=== PATIENT | female | born 1945 | race Caucasian/White ===

== ENCOUNTER 2024-01-02 13:44 | Outpatient (CLI) | payer MEDICARE, OTHER, SELFPAY ==
[2024-01-02 15:30] LABS: Basophils Absolute Auto 0.1 K/mm3 (0.0-0.1); Basophils Percent Auto 0.7 % (0.2-1.2); Eosinophils Absolute Auto 0.2 K/mm3 (0-0.3); Eosinophils Percent Auto 1.5 % (0-4.4); Hematocrit 40.2 % (37.0-47.0); Hemoglobin 13.2 g/dL (12.0-15.0); Immature Granulocyte Absolute 0.13 K/mm3 (0.00-0.031); Immature Granulocyte Percent A 1.1 % (0-0.5); Lymphocytes Absolute Auto 2.57 K/mm3 (0.9-3.2); Lymphocytes Percent Auto 21.1 % (18.3-44.2); Mean Corpuscular HGB Conc 32.8 g/dl (32-36); Mean Corpuscular Hemoglobin 29.1 pg (26-34); Mean Corpuscular Volume 88.5 fl (80-100); Monocytes Percent Auto 8.4 % (2.6-8.5); Neutrophils Absolute Auto 8.2 K/mm3 (1.3-6.7); Neutrophils Percent Auto 67.2 % (45.5-73.1); Platelet Count Result 290 k/mm3 (150-375); Red Blood Count 4.54 M/mm3 (4.2-5.4); White Blood Count 12.2 K/mm3 (4.5-10.0)
[2024-01-02 15:39] LABS: Albumin Level 4.7 g/dL (3.5-5.1); Anion Gap 13 mmol/L (4-12); Blood Urea Nitrogen 22 mg/dL (7-17); Calcium 9.7 mg/dL (8.4-10.2); Carbon Dioxide 21 mmol/L (22-30); Chloride 106 mmol/L (98-107); Estimated Glomerular Filt Rate 48; Glucose 183 mg/dL (65-110); Sodium 140 mmol/L (137-145)
[2024-01-02 15:58] LABS: Urine Cotinine NEGATIVE
[2024-01-02 16:53] LABS: Hemoglobin A1C 5.9 % (<5.7)
== END 2024-01-02 13:45 | disposition home or self-care (01) ==
LOC: ANHSURGERY 13:51
PROVIDERS: PCP Family Medicine; Visit Provider Orthopaedic Surgery
DX: M17.11 Unilateral primary osteoarthritis, right knee (principal); Z01.818 Encounter for other preprocedural examination
CPT/HCPCS: 80048; 80307; 82040; 83036; 85025; 87081

== ENCOUNTER 2024-01-18 01:33 | Day surgery (SDC) | payer MEDICARE, OTHER, SELFPAY ==
[2024-01-02 14:13] VITALS: BP 132/62; PULSE 95; RESP 16; TEMP 37.3; BMI 33.3
--- NOTE | 2024-01-02 14:35 | PC.NURSE ---
Report to the Outpatient Waiting Room, entrance under the green pavilion located off [facility], at time ____09:30AM___ on date _01/18/24 . Planned Procedure Time: ___11:30AM . Time changes happen often and if your time is changed the preop area will call you the afternoon before. - You and your visitor will be asked to self-screen and do not enter if you have any COVID symptoms. - A mask is optional within the hospital at this time. Patients may have clear liquids (water, carbonated beverages, clear teas, apple juice) until 3 hours prior to surgery with a maximum of 20 ounces. - No food from midnight until time of surgery Take the following medications with a SIP of water the morning of surgery: ___LEVOTHYROXINE DO NOT STOP ANY OF YOUR OTHER PRESCRIPTION MEDICATIONS PRIOR TO SURGERY ?EXCEPT THE FOLLOWING Medications to discontinue per physician - HOLD MELOXICAM [address] CEE. Date to take last dose 01/09/25 . Please no make-up, nail spanish, hairspray, perfume, deodorant, or body powder the day of surgery. No jewelry (including any body piercings) or valuables the day of surgery, leave them at home. Please take a shower or bath the night before, or the morning of, surgery with an antibacterial soap. Wear comfortable, loose fitting clothing. - Jewelry must be removed prior to entering the operating room. Rings and piercings that are not removed may be cut off. - The hospital will not accept responsibility for valuables. - Please leave all valuables, including medications, at home the day of surgery. If you are going home after surgery, a licensed peg driver must drive you home. - NO public transportation without another adult if you receive anesthesia. - We recommend that an adult stay with you for 24 hours following discharge. - We also recommend that you do not drive, make important decision, drink alcoholic beverages, or take any drugs that were not prescribed by your health care provider for at least 24 hours after your discharge time. Follow any additional instructions given to you from your surgeon. If you or anyone in your household have experienced Covid symptoms in the past week, please notify your surgeon or the nurse liaison at the phone number below for possible testing. Telephone instructions given to ___PATIENT and asked if any additional questions and then verbalized understanding. Patient advised to call surgeon office or pre surgery nurse liaison [phone] if any additional questions.
--- NOTE | 2024-01-15 11:17 | PM.IMHP ---
H&P: HPI History of Present Illness Date/Time: 01/15/24 11:17 Chief Complaint: Right knee DJD Narrative: 78-year-old female patient of Dr. Marcus who presents today for a right total knee arthroplasty. She has been having pain in her knee for years. She has severe medial compartment osteoarthritis in the right knee. She takes meloxicam 15 mg daily. She has had injections in her knee in the past. Last 1 was in August of this year which gave her minimal improvement, she states the shot prior to that was about the same. Patient is having pain on a daily basis and feels she is ready proceed with total knee arthroplasty at this point. Review of Systems Review of Systems: All systems reviewed & are unremarkable except as noted in HPI and below PMFSH Past Medical History Medical History (Updated 12/24/23 @ 14:30 by Malik Moore MD) High cholesterol Hypertension Hypothyroid Family History Family History (Updated 12/06/23 @ 09:40 by Erum Vega CMA) Mother Dementia Anxiety Carcinoma of colon Social History Social History (Updated 12/06/23 @ 09:40 by Erum Vega CMA) Smoking status: Never smoker Alcohol intake: never Substance use type: does not use Do You Feel Safe in your Home?: No Lack of Transportation: No Lack of Food: Never True Current Housing: I Have Housing Concerned About Future Housing: No Difficulty Paying Gas/Electric Bills: No Difficulty Paying for Meds: No Currently Unemployed: No Education: Master's Degree or Higher Difficulty w/ Childcare or Family Care: No Living arrangements: alone Occupation/Education: retired Spiritual care concerns: No Meds Home Medications and Allergies Home Medications Medication Instructions Recorded Confirmed Type amitriptyline 10 mg tablet 20 mg PO QHS 12/06/23 01/02/24 History atorvastatin 10 mg tablet 10 mg PO DAILY 12/06/23 01/02/24 History bisoprolol 5 1 tablet PO DAILY 12/06/23 01/02/24 History mg-hydrochlorothiazide 6.25 mg tablet famotidine 40 mg tablet 40 mg PO DAILY 12/06/23 01/02/24 History levothyroxine 50 mcg capsule 50 mcg PO DAILY 12/06/23 01/02/24 History meloxicam 15 mg tablet 15 mg PO DAILY PRN Pain 12/06/23 01/02/24 History valsartan 320 mg tablet 320 mg PO DAILY 12/06/23 01/02/24 History acetaminophen 500 mg capsule 500 mg PO HS 01/02/24 01/02/24 History clobetasol 0.05 % topical ointment 1 applic topical BID PRN Vaginal 01/02/24 01/02/24 History Irritation Allergies Allergy/AdvReac Type Severity Reaction Status Date / Time Penicillins Allergy Unknown Rash Verified 01/02/24 14:00 Exam Narrative: 78-year-old female alert pleasant. She is 5 ft tall and 170 lb BMI is 32.9. Right knee range of motion is from 7-125 degrees. Moderate effusion. Normal stability in the knee. No significant tenderness over the medial or lateral joint line. 2+ dorsalis pedis and posterior artery pulse palpable. No edema in the lower extremities. Hip range of motion is full without discomfort, negative Stinchfield maneuver. Normal quad strength. Resp: Auscultation: clear to auscultation bilaterally Cardio: Rate: regular rate Rhythm: regular rhythm Assessment and Plan Assessment and plan (1) Primary osteoarthritis of right knee: Code(s): M17.11 - Unilateral primary osteoarthritis, right knee Status: Acute Assessment and Plan: 78-year-old female who has severe medial compartment osteoarthritis of the right knee with continued symptoms. She feels at this point she is ready proceed with total knee arthroplasty rather than continue nonsurgical treatment. Surgical procedure as well as the risks and complications were discussed in detail and all questions were answered and we will proceed. She will see her primary care doctor for pre-surgical clearance. She will stop her meloxicam in any other aspirin ibuprofen products 1 prior to surgery. Patient's nasal swa
[2024-01-18] VITALS (9 sets, daily range): BP systolic 99–125; BP diastolic 43–62; PULSE 81–91; RESP 12–20; TEMP 36.3–36.6; O2SAT 91–100; BMI 32.0
--- NOTE | ~2024-01-18 | XR_ITS ---
EXAMINATION: [id number] DATE: 01/18/2024 15:43 CDT INDICATION: Right total knee arthroplasty TECHNIQUE: 2 views right knee FINDINGS: There is a right total knee arthroplasty in expected position. Subcutaneous gas with fluid and air in the joint are consistent with recent surgery. No evidence of periprosthetic fracture. IMPRESSION: 1. Recent right total knee arthroplasty. Reviewed, dictated and finalized at location B.
[2024-01-18] MEDS: TRANEXAMIC ACID 1,000MG/ISO100 1,000 MG/100 ML BAG 200 MG IVPB (10:30)
[2024-01-18] MEDS: LACTATED RINGERS 1,000 ML 30 ML IV CONT ×2 (10:30→15:13)
[2024-01-18] MEDS: ACETAMINOPHEN 500 MG TABLET 1000 MG PO (10:30)
[2024-01-18] MEDS: VANCOMYCIN 1,250 MG/NS 250 ML BAG 166.67 MG IVPB (10:30)
--- NOTE | 2024-01-18 11:28 | WPDHPUPDATE1 ---
History and Physical Update Update Date/Time: 01/18/24 11:28 History and Physical has been reviewed, including an updated exam of the patient. There are NO changes in the patient's condition. Risks, benefits, and alternatives have been discussed and questions answered. Patient agrees to proceed with procedure.
--- NOTE | 2024-01-18 11:50 | WPDANESEPPF ---
Anes - Initial Pre Proc Eval Procedure: Operation Date: 01/18/24 11:30 Proposed Procedures p Right Total Knee Arthroplasty - Malik Moore MD Date/Time: 01/18/24 11:50 Surgeon: Malik Moore MD Pre Op Diagnosis: oa right knee Patient Data Age: 78 Gender: F Height: 1.52 m Weight: 74.4 kg Last Vital Signs Temp 99.1 F 01/02/24 14:13 Pulse 95 01/02/24 14:13 Resp 16 01/02/24 14:13 BP 132/62 01/02/24 14:13 Allergies Allergy/AdvReac Type Severity Reaction Status Date / Time Penicillins Allergy Unknown Rash Verified 01/18/24 11:13 Home Medications Medication Instructions Recorded Confirmed Type amitriptyline 10 mg tablet 20 mg PO QHS 12/06/23 01/17/24 History atorvastatin 10 mg tablet 10 mg PO DAILY 12/06/23 01/17/24 History bisoprolol 5 1 tablet PO DAILY 12/06/23 01/17/24 History mg-hydrochlorothiazide 6.25 mg tablet famotidine 40 mg tablet 40 mg PO DAILY 12/06/23 01/17/24 History levothyroxine 50 mcg capsule 50 mcg PO DAILY 12/06/23 01/18/24 History meloxicam 15 mg tablet 15 mg PO DAILY PRN Pain 12/06/23 01/17/24 History valsartan 320 mg tablet 320 mg PO DAILY 12/06/23 01/17/24 History acetaminophen 500 mg capsule 500 mg PO HS 01/02/24 01/17/24 History clobetasol 0.05 % topical ointment 1 applic topical BID PRN Vaginal 01/02/24 01/17/24 History Irritation Laboratory Tests 01/18/24 10:01 Blood Type A Positive Antibody Screen Negative Patient hx anesthesia problems: none Family hx anesthesia problems: none Results Review: All pre-operative results and documents have been reviewed as part of the pre-operative evaluation. [facility] Past Medical History Medical History High cholesterol Hypertension Hypothyroid Family History Family History (Updated 01/17/24 @ 12:05 by SUSU Colby) Mother Dementia Anxiety Carcinoma of colon Father No problems noted. Sibling No problems noted. Social History Social History (Updated 01/17/24 @ 12:06 by Sierra Wilburn [facility]) Smoking status: Never smoker Second hand tobacco smoke exposure: No Alcohol intake: never Substance use: never Substance use type: does not use Do You Feel Safe in your Home?: No Lack of Transportation: No Lack of Food: Never True Current Housing: I Have Housing Concerned About Future Housing: No Difficulty Paying Gas/Electric Bills: No Difficulty Paying for Meds: No Currently Unemployed: No Education: Master's Degree or Higher Difficulty w/ Childcare or Family Care: No Living arrangements: alone Occupation/Education: retired 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 Gender identity (if verbalized by the patient): Female Spiritual care concerns: No Anes - Eval Final PreProcedure Day of Procedure 01/18/24 11:50 Patient weight: obese Heart: regular rate and rhythm Lungs: clear to auscultation Airway: Mallampati scale class II Neurological: alert and oriented Last oral intake: >/= 8 hours ASA classification: III Emergent: no Anesthetic plan: proceed Anesthesia type and monitoring: general ETT and standard monitoring Results Review: All pre-operative results and documents have been reviewed as part of the pre-operative evaluation. Informed Consent: The patient's anesthetic plan and its attendant risks and benefits were discussed with the patient/family/POA. Questions were solicited and answers provided to the satisfaction of the patient/family/POA.
[2024-01-18] MEDS: ceFAZolin 2 GM/D5W 50 ML 2 GM/50 ML BAG IVPB ×3 (12:02→20:58)
[2024-01-18] MEDS: ceFAZolin SODIUM 1 GM VIAL 3 GM (12:41)
[2024-01-18] MEDS: SODIUM CHLORIDE 0.9% IV 38.7 ML, MORPHINE SULFATE INJ (*CRX) 2 MG, ROPivacaine HCL 1% 2... INFILTRATE (12:41)
[2024-01-18] MEDS: TRANEXAMIC ACID 1,000 MG/10 ML AMPUL 1000 MG IV PUSH (14:18)
--- NOTE | 2024-01-18 15:10 | W.PM.PROC2 ---
Procedure Note - Detailed Date of Procedure 01/18/24 Pre-op Diagnosis oa right knee Post-op Diagnosis Same Procedure Performed Right total knee arthroplasty Surgeon Malik Mooer MD Tail Sawyer hai Anesthesia General Description of Procedure Patient was brought to the operating room and general anesthesia was administered. Right knee was prepped draped usual fashion. She received 2 g of Ancef weight based vancomycin 1 g of tranexamic acid preoperatively. He was exsanguinated tourniquet elevated to 250 mmHg. A 7 in longitudinal midline incision was used and a vastus medialis splitting approach utilized splitting the vastus medialis at the superior pole of patella. Partial excision of the infrapatellar fat pad was performed and quadriceps synovectomy carried out. The patella had mild chondromalacia of the medial facet otherwise normal cartilage on felt it was appropriate for non resurfacing. A minimal lateral facetectomy was performed. We removed anterior medial osteophyte from the tibial plateau. Because she did not have a significant varus deformity, I did not remove osteophyte from the posteromedial tibial plateau. A guide rachel was inserted on femoral canal after aspiration of canal contents using the 5 degree valgus cutting bushing 9 mm of bone removed the distal femur. Because of wear on the medial femoral condyle this removed equal amounts medially and laterally. Next the tibial plateau was cut. We made a skim cut off the wear the fact anteromedial tibial plateau perpendicular to the axis of the tibia. Meniscal remnants were excised the PCL was recessed. The flexion gap was assessed measured only 6 mm medially was therefore too tight and we removed additional 2 mm of bone from tibial plateau. With this done the flexion gap measured 8 mm medially 12 mm laterally. The femoral sizing guide was applied the distal femur set at 5? of external rotation which matched [place] line. Posterior referencing pinholes were placed and the size 60 vanguard AP cutting block applied AP and chamfer cuts were made in the 60 fit nicely line to line medial to lateral and the anterior chamfer rested on the anterior cortex. Flexion gap was assessed at 90? with the 10 CR insert there was 2 mm of play both medially and laterally. The knee came out close to full extension. The tibia was prepared. The size 67 would have overhung a fair amount at proper rotation. The 63 fit line to line anteromedial to the posterior rim of the lateral femoral condyle a proper rotation and this was punched. We trialed with the 10 insert and the knee came out to full extension and had what seemed to be appropriate stability to anterior posterior drawer at 90?. We did trial with the 11 and it was too tight at 90?. With the [address] there is a barely positive bounce. I was a mm of play medially no play laterally and extension. Therefore additional 1 mm bone was removed the distal femur. Conservative central posterior capsule release from the distal femur was also carried out and now the knee came out to full extension with 1-2 mm of medial opening 1 mm lateral opening and with the arthrotomy towel clip still negative bounce with 1 mm each mediolateral. [place] flexion was to 130. There was central patellar tracking. Lug holes were drilled the distal femur. Step drill was used to make multiple perforations in the distal femur and tibial plateau. Bone quality was excellent both surfaces. Bony surfaces were thoroughly irrigated and dried. Using 2 batches of methylmethacrylate 1 the gentamicin powder, the cement was medially applied the size 63 vanguard tibial tray and the size 60 right CR femoral component cement applied the tibial plateau pressurized tibial component fully seated cement applied femur the femoral component fully seated the knee brought to extension with a 11 mm 5 1 insert for pressurization. Tourniquet was released at approximately 110 minutes. After cement hard
--- NOTE | 2024-01-18 15:23 | PM.OP ---
Procedure Note - Brief Procedure Note - Brief Date of procedure: 01/18/24 oa right knee Procedure performed: Right total knee arthroplasty Surgeon: MAXWELL Overton Findings: 78-year-old female underwent right total knee arthroplasty on 01/17. I was involved in the procedure including positioning patient on the OR table in 1st assisting to the time surgery. He assisted getting patient to recovery room. Total time spent was 3 hours
[2024-01-18] MEDS: fentaNYL CITRATE INJ (*CRX) 100 MCG/2 ML VIAL 25 MCG IV PUSH ×4 (15:27→15:58)
--- NOTE | 2024-01-18 16:23 | ADMGEN ---
This patient, Mel Gallagher, was admitted to Medical Room 340-01. Patient/family oriented to hospital policies and general routines including ID bracelet, bed and alarms, visiting hours, pain management, procedures, bathroom and other care routines, personal items, smoking policy, room service/diet, and visiting hours. Information on how to activate the Rapid Response Team has been discussed. Patient/Family are encouraged to report perceived risks to care and to ask questions if they do not understand what they are told or what they should do.
[2024-01-18] MEDS: SENNA/DOCUSATE SODIUM TABLET 2 TAB PO (17:26)
[2024-01-18] MEDS: oxyCODONE HCL (*CRX) 5 MG TAB IR PO ×2 (17:26→21:02)
[2024-01-18] MEDS: ACETAMINOPHEN 325 MG TABLET 650 MG PO ×2 (17:26→21:02)
[2024-01-18] MEDS: FAMOTIDINE 20 MG TABLET PO (21:03)
[2024-01-19] MEDS: oxyCODONE HCL (*CRX) 5 MG TAB IR PO ×5 (00:22→16:13)
[2024-01-19] MEDS: ACETAMINOPHEN 325 MG TABLET 650 MG PO ×5 (00:22→16:13)
[2024-01-19 00:32] VITALS: BP 124/57; PULSE 89; RESP 18; TEMP 36.1; O2SAT 93
[2024-01-19 04:46] VITALS: BP 132/52; PULSE 87; RESP 18; TEMP 36.2; O2SAT 98
[2024-01-19] MEDS: ceFAZolin 2 GM/D5W 50 ML 2 GM/50 ML BAG IVPB ×2 (04:48→13:07)
[2024-01-19 05:16] LABS: Basophils Percent Auto 0.1 % (0.2-1.2); Hematocrit 29.8 % (37.0-47.0); Hemoglobin 9.8 g/dL (12.0-15.0); Immature Granulocyte Absolute 0.11 K/mm3 (0.00-0.031); Immature Granulocyte Percent A 0.7 % (0-0.5); Lymphocytes Absolute Auto 0.96 K/mm3 (0.9-3.2); Mean Corpuscular HGB Conc 32.9 g/dl (32-36); Mean Corpuscular Hemoglobin 29.5 pg (26-34); Mean Corpuscular Volume 89.8 fl (80-100); Mean Platelet Volume 10.3 fl (7.4-10.4); Monocytes Absolute Auto 1.3 K/mm3 (0.1-0.6); Monocytes Percent Auto 8.2 % (2.6-8.5); Neutrophils Absolute Auto 13.7 K/mm3 (1.3-6.7); Platelet Count Result 229 k/mm3 (150-375); Red Blood Count 3.32 M/mm3 (4.2-5.4); Red Cell Distribution Width 14.6 % (11.5-14.5); White Blood Count 16.1 K/mm3 (4.5-10.0)
[2024-01-19] MEDS: LEVOTHYROXINE SODIUM 50 MCG TABLET PO (05:18)
[2024-01-19 05:30] LABS: Anion Gap 12 mmol/L (4-12); Blood Urea Nitrogen 24 mg/dL (7-17); Calcium 8.6 mg/dL (8.4-10.2); Carbon Dioxide 21 mmol/L (22-30); Chloride 100 mmol/L (98-107); Estimated CRCL calculation 31 ml/min; Estimated Glomerular Filt Rate 43; Glucose 139 mg/dL (65-110); Sodium 133 mmol/L (137-145)
--- NOTE | 2024-01-19 07:33 | WPDCN ---
Assessment and Plan Assessment and plan (1) Primary osteoarthritis of right knee: Code(s): M17.11 - Unilateral primary osteoarthritis, right knee Status: Acute Assessment and Plan: 01/19/24: Patient is postop day 1 from an elective right hip arthroplasty Ortho surgery following PT and OT ordered Can be full weight-bearing status per Ortho Continue incentive spirometry Continue vancomycin, cefazolin, and cefdinir Continue neuro checks Continue pain and nausea control Started on Eliquis 2.5 mg b.i.d. for 24 doses Pending for discharge today We will go ahead and sign off for now (2) Hypertension: Code(s): I10 - Essential (primary) hypertension Status: Acute Assessment and Plan: 01/19/24: Blood pressures ranging blood pressures ranging 107/57 to 124/57 Continue hydrochlorothiazide, valsartan, bisoprolol (3) High cholesterol: Code(s): E78.00 - Pure hypercholesterolemia, unspecified Status: Acute Assessment and Plan: 01/19/24: Continue atorvastatin (4) Hypothyroid: Code(s): E03.9 - Hypothyroidism, unspecified Status: Acute Assessment and Plan: 01/19/24: Continue Synthroid HPI Data of Consult Date/Time: 01/19/24 07:33 Requesting Physician: Malik Moore MD Primary Care Provider: Wero Marcus, Consult Narrative Narrative: Mel Gallagher is a 78 year old female with a significant past medical history of hyperlipidemia, hypertension, hypothyroidism who came to the hospital on 01/18/2024 for an elective right total knee arthroplasty with orthopedic surgery. Patient is currently postop day 1. Patient denies any fever, chills, nausea, vomiting, diarrhea, abdominal pain, chest pain, shortness a breath. Patient endorses 8/10 pain in her right knee, otherwise no new complaints. We were consulted for medical management while inpatient. Review of Systems Review of Systems: All systems reviewed & are unremarkable except as noted in HPI and below Constitutional: Constitutional: Reports as per HPI and Reports no additional constitutional complaints Eyes: Eyes: Reports as per HPI and Reports no additional eye complaints ENT: Reports system reviewed and no additional complaints, except as documented and Reports as per HPI Cardiovascular: Cardiovascular: Reports as per HPI and Reports no additional cardiovascular complaints Respiratory: Respiratory: Reports as per HPI and Reports no additional respiratory complaints Gastrointestinal: Gastrointestinal: Reports as per HPI and Reports no additional gastrointestinal complaints Genitourinary: Genitourinary: Reports no additional female genitourinary complaints and Reports as per HPI Musculoskeletal: Musculoskeletal: Reports no additional musculoskeletal complaints and Reports as per HPI Integumentary/Breasts: Skin/Breast: Reports system reviewed and no additional complaints, except as docu and Reports as per HPI Neurologic: Reports system reviewed and no additional complaints, except as documented and Reports as per HPI Psychiatric: Psychiatric: Reports no additional psychiatric complaints and Reports as per HPI [facility] Past Medical History Medical History (Updated 01/19/24 @ 07:38 by Shena Lozoya APRN) High cholesterol Hypertension Hypothyroid Family History Family History Mother Dementia Anxiety Carcinoma of colon Father No problems noted. Sibling No problems noted. Social History Social History Smoking status: Never smoker Second hand tobacco smoke exposure: No Alcohol intake: never Substance use: never Substance use type: does not use Do You Feel Safe in your Home?: No Lack of Transportation: No Lack of Food: Never True Current Housing: I Have Housing Concerned About Future Housing: No
--- NOTE | 2024-01-19 07:56 | PM.PNORT ---
Subjective Subjective Date/Time Seen: 01/19/24 07:56 Interval history: Postop day 1 patient is alert. She is afebrile vital signs are stable. Neurovascularly she is intact. Dressing is dry and intact. She has been up to the restroom multiple times overnight. Morning labs are noted. Hemoglobin is slightly decreased. Patient is having no symptoms from this. Her creatinine was 1.2 this morning. We will not be using any anti-inflammatories postoperatively on her because of the elevated creatinine. Overall pain is well controlled with Tylenol and oxycodone. We will plan have the patient work with therapy this morning as well as this afternoon and once IV antibiotics been completed she will be discharged home this afternoon. Objective Data Vital Signs Vital Signs: Vital Signs - 24 hr 01/18/24 15:13 01/18/24 15:25 01/18/24 15:40 Temperature 97.4 F L Pulse Rate 84 84 81 Respiratory Rate 16 20 12 Blood Pressure 107/52 L 103/47 L 99/43 L Pulse Oximetry 100 100 93 Oxygen Delivery Simple Face Mask Simple Face Mask Room Air Oxygen Flow Rate 8 8 01/18/24 15:55 01/18/24 16:06 01/18/24 16:46 Temperature Pulse Rate 91 86 Respiratory Rate 18 14 Blood Pressure 106/50 L 106/49 L Pulse Oximetry 93 92 Oxygen Delivery Room Air Autopap Autopap Oxygen Flow Rate 01/18/24 16:23 01/18/24 16:40 01/18/24 17:15 Temperature 97.7 F 97.7 F 97.8 F Pulse Rate 85 88 90 Respiratory Rate 16 16 18 Blood Pressure 105/48 L 112/55 L 107/57 L Pulse Oximetry 95 91 93 Oxygen Delivery Oxygen Flow Rate 01/18/24 19:54 01/18/24 20:00 01/19/24 00:32 Temperature 97.6 F 97 F L Pulse Rate 90 89 Respiratory Rate 18 18 Blood Pressure 125/62 124/57 L Pulse Oximetry 96 93 Oxygen Delivery Room Air Oxygen Flow Rate 01/19/24 04:46 Temperature 97.1 F L Pulse Rate 87 Respiratory Rate 18 Blood Pressure 132/52 L Pulse Oximetry 98 Oxygen Delivery Oxygen Flow Rate Intake/Output Intake/Output: Intake & Output 01/16/24 01/17/24 01/18/24 01/19/24 23:59 23:59 23:59 23:59 Intake Total 980 300 Balance 980 300 Meds/Results Medications: Active Medications Generic Name Dose Route Start Last Admin Trade Name Freq PRN Reason Stop Dose Admin Acetaminophen 650 mg 01/18/24 17:00 01/19/24 04:44 Acetaminophen 325 Mg Tablet PO 650 mg Q4HR DEON Administration Amitriptyline HCl 20 mg 01/19/24 21:00 Amitriptyline Hcl 10 Mg Tablet PO QHS DEON Apixaban 2.5 mg 01/19/24 09:00 Apixaban 2.5 Mg Tablet PO 01/30/24 21:01 Q12HR DEON Atorvastatin Calcium 10 mg 01/19/24 09:00 Atorvastatin 10 Mg Tablet PO DAILY DEON Bisoprolol Fumarate 5 mg 01/19/24 09:00 Bisoprolol Fumarate 5 Mg Tablet PO QAM DEON Cefdinir 300 mg 01/19/24 21:00 Cefdinir 300 Mg Capsule PO Q12HR DEON Diphenhydramine HCl 25 mg 01/18/24 16:08 Diphenhydramine Hcl Inj 50 Mg/Ml Vial IV PUSH Q6H PRN Itching Famotidine 20 mg 01/18/24 21:00 01/18/24 21:03 Famotidine 20 Mg Tablet PO 20 mg Q12HR DEON Administration Hydrochlorothiazide 6.25 mg 01/19/24 09:00 Hydrochlorothiazide 6.25 Mg Tablet PO QAM [facility] Cefazolin Sodium 2 gm in 50 mls @ 100 mls/hr 01/18/24 20:00 01/19/24 05:18 Ancef 2 Gm/D5w 50 Ml IVPB 01/19/24 12:29 Infused Q8H [facility] Infusion Vancomycin HCl 1,000 mg in 250 mls @ 250 mls/hr 01/19/24 10:00 Vancomycin 1,000 Mg/Ns 250 Ml IVPB 01/20/24 10:59 Q24H DEON Levothyroxine Sodium 50 mcg 01/19/24 06:30 01/19/24 05:18 Levothyroxine Sodium 50 Mcg Tablet PO 50 mcg DAILY@0630 DEON Administration Morphine Sulfate 2 mg 01/18/24 16:08 Morphine Sulfate (*Crx) 2 Mg/Ml Inj IV PUSH Q2H PRN Breakthrough Pain Rated 4-6 or NPO Naloxone HCl 0.1 mg 01/18/24 16:08 Naloxone Hcl 0.4 Mg/Ml Vial IV PUSH Q2M PRN Opiate Reversal Ondansetron HCl 4 mg 01/18/24 16:08 Ondansetron Inj 4 Mg/2 Ml Vial IV PUSH
--- NOTE | 2024-01-19 08:06 | PM.DS ---
DS: Admitting Diagnosis Discharge Date 01/18 Admitting Diagnosis Right knee DJD DS: Discharge Diagnosis Discharge Diagnosis (1) History of total right knee replacement (TKR): Code(s): Z96.651 - Presence of right artificial knee joint Status: Acute DS: Summary Hospital Course Hospital Course: 78-year-old female who underwent right total knee arthroplasty on 01/17. She underwent the procedure without complications. Postoperatively she has been afebrile vital signs stable. Neurovascularly she is intact. She was up to the restroom multiple times the day of surgery in tolerating walking well. Pain is well controlled with scheduled Tylenol as well as oxycodone 5 mg. Patient has a history of elevated creatinine so we are not using anti-inflammatories postoperatively for her. Patient be discharged home on 01/18. She was advised to keep leg elevated home prevent swelling but also do her exercises on an hourly basis. She will go home with 1 week of Omnicef. She will also go home with MiraLax and Senokot for constipation. She is on Eliquis for DVT prophylaxis. Patient was advised any questions or concerns she is to call the office otherwise we will see her at her appointed dates. Time Spent with Patient Time attestation: Total time spent providing and/or coordinating discharge services: DS: Data Data Completed and Pending Labs on day of discharge: Labs from last 24 hours 01/19/24 01/18/24 04:55 10:01 WBC 16.1 H RBC 3.32 L Hgb 9.8 L D Hct 29.8 L MCV 89.8 MCH 29.5 MCHC 32.9 RDW 14.6 H Plt Count 229 MPV 10.3 Immature Gran % (Auto) 0.7 H Neut % (Auto) 85.0 H Lymph % (Auto) 6.0 L [place] % (Auto) 8.2 Eos % (Auto) 0.0 Baso % (Auto) 0.1 L Lymph # (Auto) 0.96 [place] # (Auto) 1.3 H Eos # (Auto) 0.0 Baso # (Auto) 0.0 Abs Immat Gran (auto) 0.11 H Absolute Neuts (auto) 13.7 H Absolute Nucleated RBC 0.000 Nucleated RBC % 0.0 Sodium 133 L Potassium 4.0 Chloride 100 Carbon Dioxide 21 L Anion Gap 12 BUN 24 H Creatinine 1.20 H Estim Creat Clear Calc 31 Estimated GFR 43 L Glucose 139 H Calcium 8.6 Blood Type A Positive Antibody Screen Negative Discharge Plan Discharge Patient Disposition: Home, Self-Care Discharge Instructions: If you have not already done so, please call to make an appointment with Dr. Ware the night worker to evaluate your impaired kidney function. SEMAJ CEE M.D [facility] [address] [address] [address] [place] [address] POST-OPERATIVE DISCHARGE INSTRUCTIONS TOTAL KNEE ARTHROPLASTY 1. When resting, do not rest in the chair.When resting, lie on your back, with back flat on the couch or bed, with leg elevated above heart to minimize swelling. You may put a pillow under your head. . Significant swelling could indicate a blood clot and if this occurs call the office (or go to the ER) to have a venous ultrasound. Therefore, do not rest in a chair. 2. At least five times a day spend several minutes stretching your knee into flexion while sitting in the chair and also stretching your knee out straight The abilities to bend your knee fully and straighten your knee fully are two most important knee functions to focus on during your recovery. 3. It is ok to sit in chair to eat, use the toilet and receive a guest and to do your stretching exercises, but, sitting in a chair will cause your leg to swell. Therefore, avoid additional time sitting in the chair. and don't rest in the chair. 4. Wound Care: Nursing will give you an additional Mepilex dressing at the time of discharge. Patient to remove the dressing and apply a new Mepilex dressing at home 7 days after surgery and leave the dressing on until seen in office. It is normal to see a small amount of blood on the silver pad of the Mepilex dressing. Its designed to hold small spots of blood. However, if the blood reaches the e
[2024-01-19] MEDS: APIXABAN 2.5 MG TABLET PO (08:47)
[2024-01-19] MEDS: polyethylene glycoL 3350 17 GM POWD.PACK PO (08:47)
[2024-01-19] MEDS: SENNA/DOCUSATE SODIUM TABLET 2 TAB PO ×2 (08:47→16:12)
[2024-01-19 08:50] VITALS: BP 106/41; PULSE 68; RESP 12; TEMP 36.3; O2SAT 92
[2024-01-19 08:51] VITALS: BP 111/48; PULSE 65; RESP 16; O2SAT 94
[2024-01-19 08:52] VITALS: PULSE 65
[2024-01-19] MEDS: bisoproloL fumarate 5 MG TABLET PO (08:52)
[2024-01-19] MEDS: FAMOTIDINE 20 MG TABLET PO (10:00)
[2024-01-19] MEDS: VANCOMYCIN 1,000 MG/NS 250 ML 1,000 MG/250 ML BAG 250 MG IVPB (10:00)
--- NOTE | 2024-01-19 12:24 | WPDANESPN ---
Anes - Prog Note Post-Op Date/Time: 01/19/24 12:24 Cardiovascular status: normal Respiratory status: normal Airway patency: baseline Mental status: baseline Post-Op hydration status: normal Vital Signs: Last Vital Signs Temp 36.3 C L 01/19/24 08:50 Pulse 65 01/19/24 08:52 Resp 16 01/19/24 08:51 BP 111/48 L 01/19/24 08:51 Pulse Ox 94 01/19/24 08:51 O2 Del Method Room Air 01/19/24 10:00 O2 Flow Rate 8 01/18/24 15:25 Pain Score (VAS): 0 I/O: Intake & Output 01/18/24 01/19/24 01/19/24 23:59 07:59 15:59 Intake Total 630 300 340 Balance 630 300 340 Laboratory Tests 01/19/24 04:55 01/19/24 04:55 01/19/24 04:55 WBC 16.1 H RBC 3.32 L Hgb 9.8 L D Hct 29.8 L MCV 89.8 MCH 29.5 MCHC 32.9 RDW 14.6 H Plt Count 229 MPV 10.3 Immature Gran % (Auto) 0.7 H Neut % (Auto) 85.0 H Lymph % (Auto) 6.0 L [place] % (Auto) 8.2 Eos % (Auto) 0.0 Baso % (Auto) 0.1 L Lymph # (Auto) 0.96 [place] # (Auto) 1.3 H Eos # (Auto) 0.0 Baso # (Auto) 0.0 Abs Immat Gran (auto) 0.11 H Absolute Neuts (auto) 13.7 H Absolute Nucleated RBC 0.000 Nucleated RBC % 0.0 Sodium 133 L Potassium 4.0 Chloride 100 Carbon Dioxide 21 L Anion Gap 12 BUN 24 H Creatinine 1.20 H Estim Creat Clear Calc 31 Estimated GFR 43 L Glucose 139 H Calcium 8.6 Post-procedural complaints: none Patient Feedback: Patient satisfied with anesthetic care.
--- NOTE | 2024-01-19 13:16 | PC.NURSE ---
Ok to hold BP meds for 01/18 per IVELISSE Chatterjee due to latest VS
== END 2024-01-19 16:30 | disposition home or self-care (01) ==
LOC: ANHSURGERY 09:13 → ANH3MED 16:13
PROVIDERS: Physician Assistant Surgical; PCP Family Medicine; Visit Provider Orthopaedic Surgery
PROC: (CPT 27447; principal; 2024-01-18 11:30)
DX: M17.11 Unilateral primary osteoarthritis, right knee (principal); I10 Essential (primary) hypertension; E78.00 Pure hypercholesterolemia, unspecified; E03.9 Hypothyroidism, unspecified; E66.9 Obesity, unspecified; Z68.32 Body mass index [BMI] 32.0-32.9, adult
CPT/HCPCS: 27447; 36415; 73560; 80048; 85025; 86850; 86900; 86901; 97110; 97116; 97161; 97165; 97530; A9270; C1713; C1776; J0171; J0690; J1100; J1170; J1885; J2270; J2405; J2704; J2795; J3010; J3370; J7120

== ENCOUNTER 2024-02-13 10:15 | Outpatient (RCR) | payer MEDICARE, OTHER, SELFPAY ==
--- NOTE | 2024-01-23 16:47 | OPREHPOC ---
Outpatient Therapy Plan of Care This is a Multidisciplinary Plan of Care that may contain components documented by all disciplines (PT, OT, and ST.) PT Problem 1 PT Problem #1 Knowledge Deficit PT Goal 1 Goal [place] with HEP Target Visit 4 PT Problem 2 PT Problem #2 Pain PT Goal 1 Goal Report no pain greater than 2/10 with ambulation activity Target Visit 10 PT Problem 3 PT Problem #3 Edema PT Goal 1 Goal 2 cm+ reduction in joint line swelling for indication of soft tissue healing Target Visit 10 PT Problem 4 PT Problem #4 Impaired Range of Motion PT Goal 1 Goal Achieve terminal knee extension for even stride length Target Visit 10 PT Goal 2 Goal Achieve 120 degrees on knee flexion for functional improvement and 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
--- NOTE | 2024-01-23 16:47 | PTOPEVAL1 ---
Assessment and note entered by Sergei Kaur, PT Evaluation Information Assessment Status Evaluation Diagnosis Right TKA, Primary OA of Right knee ICD-10 Condition Codes (PT) M25.561 Onset 01/18/24 Subjective Information Reports that she is feeling good overall 5 days out. Feels better than it has over the last 5 years. She is getting some immediate relief. She has been unable to get to a standing position for quite some time. Has been using a standard walker. Ambulated independently prior to surgery. No stairs in home. She is currently staying with her daughter for help. Taking pain medication as prescribed. She was driving prior to surgery. Reported Pain Level Pain Score 7: Self Report Assessment PT Clinical Summary Patient presents with signs consistent with post operative total knee replacement. Edema noted with loss of terminal knee extension, functional flexion, and gait independence. 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 Plan of Care Interventions Electrical Stimulation,Gait Training,Manual Therapy,Neuro Re-education,Therapeutic Activities, Therapeutic Exercise PT Services Indicated Yes Treatment Frequency and 2x/week for 10 visits Duration These treatments will address the objective and functional deficits as defined above. The patient will be advanced safely and appropriately in order for the patient to progress towards his/her prior level of function. Additional exercises will be introduced and as well as a comprehensive home exercise program upon discharge, if needed, ?to ensure carryover of functional gains achieved in the clinic. This treatment plan has been reviewed and agreement upon by the patient.
--- NOTE | 2024-02-21 09:56 | PCPTNOTE ---
Patient was canceled 02/15/24 due to therapist out with illness.
--- NOTE | 2024-02-21 10:02 | PCPTNOTE ---
Patient no showed to appointment this date. Called and left voicemail.
--- NOTE | 2024-02-23 10:51 | PCPTNOTE ---
Patient was a No Show for today's Progress note
--- NOTE | 2024-03-29 15:39 | PTOPDC ---
Assessment and note entered by Sergei Kaur, PT Evaluation Information Assessment Status Discharge - Pt Not Present Diagnosis Right TKA, Primary OA of Right knee ICD-10 Condition Codes (PT) M25.561 Onset 01/18/24 Subjective Information Reports that she is feeling good overall 5 days out. Feels better than it has over the last 5 years. She is getting some immediate relief. She has been unable to get to a standing position for quite some time. Has been using a standard walker. Ambulated independently prior to surgery. No stairs in home. She is currently staying with her daughter for help. Taking pain medication as prescribed. She was driving prior to surgery. Assessment PT Clinical Summary Patient has not return to therapy since February 13 2024. No contact with clinic and 2 consecutive No Show appointments. Patient will be discharged at this time. Please see last progress note for discharge status. Plan of Care PT Services Indicated D/c
== END 2024-04-01 09:19 | disposition home or self-care (01) ==
LOC: ANHGOSHPT 10:15
PROVIDERS: PCP Family Medicine; Visit Provider Orthopaedic Surgery
DX: Z47.1 Aftercare following joint replacement surgery (principal); M17.11 Unilateral primary osteoarthritis, right knee; Z96.651 Presence of right artificial knee joint
CPT/HCPCS: 97110; 97140; 97161; 97530

== ENCOUNTER 2024-03-11 14:36 | Outpatient (CLI) | payer MEDICARE, OTHER, SELFPAY ==
--- NOTE | ~2024-03-11 | US_ITS ---
EXAMINATION: US venous doppler [facility] DATE: 03/11/2024 15:08 INDICATION: Lower limb localized edema. TECHNIQUE: Grayscale ultrasound images without and with compression and Doppler ultrasound images of the bilateral lower extremity veins were obtained. COMPARISON: None. FINDINGS: The visualized portions of right common femoral vein, profunda (deep) femoral vein, femoral vein, pop liteal vein, peroneal veins, posterior tibial veins, and greater saphenous vein outflow are patent. The visualized portions of left common femoral vein, profunda femoral vein, femoral vein, popliteal v ein, peroneal veins, posterior tibial veins, and greater saphenous vein outflow are patent. IMPRESSION: 1. No deep venous thrombosis. Reviewed, dictated and finalized at location A.
== END 2024-03-11 14:37 | disposition home or self-care (01) ==
LOC: ANHIMG 14:41
PROVIDERS: PCP Family Medicine; Visit Provider Orthopaedic Surgery
DX: R60.0 Localized edema (principal)
CPT/HCPCS: 93970